=== PATIENT | female | born 1990 | race Caucasian/White ===

== ENCOUNTER 2021-06-19 18:36 | Inpatient (IN) | payer OTHER ==
[2021-06-19 22:26] VITALS: BMI 25.7
[2021-06-19] MEDS ORDERED: BISMUTH SUBSALICYLATE 524 MG/30 ML PO PRN (23:46)
[2021-06-19] MEDS ORDERED: ONDANSETRON *ODT* 4 MG TABLET SL PRN (23:46)
[2021-06-19] MEDS ORDERED: MAG HYDROX/AL HYDROX/SIMETH 30 ML UNIT-DOSE CUP PO PRN (23:46)
[2021-06-19] MEDS ORDERED: IBUPROFEN 400 MG TABLET (FP) PO PRN (23:46)
[2021-06-19] MEDS ORDERED: MAGNESIUM HYDROX 2400MG/30ML ORAL SUSPENSION 30 ML CUP PO PRN (23:46)
[2021-06-19] MEDS ORDERED: NICOTINE POLACRILEX 2 MG GUM BUC PRN (23:46)
[2021-06-19] MEDS ORDERED: MENTHOL/PHENOL 1 EACH UD MM PRN (23:46)
[2021-06-19] MEDS ORDERED: ACETAMINOPHEN 325 MG TABLET (FP) PO PRN ×2 (23:46)
[2021-06-19] MEDS ORDERED: MAGNESIUM CITRATE 300 ML BOTTLE PO PRN (23:46)
[2021-06-19] MEDS ORDERED: methaDONE HCL 10 MG TABLET (FOR DETOX USE ONLY) PO ONE (23:51)
[2021-06-20] MEDS ORDERED: methaDONE HCL 10 MG TABLET (FOR DETOX USE ONLY) ONE (01:16)
[2021-06-20] MEDS: PRENATAL VITAMINS W/ FOLIC ACID TABLET (FP) PO SCH (10:42)
[2021-06-20 13:27] LABS: HEMATOCRIT 35.5 % (32.4-45.2); HEMOGLOBIN 11.3 GM/dL (10.7-15.3); MCH 25.2 pg (25.7-33.7); MCHC 31.7 g/dl (32.0-36.0); MEAN CELL VOLUME 79.6 fl (80-96); MEAN PLT VOLUME 8.6 fl (7.5-11.1); PLATELET COUNT 418 10^3/uL (134-434); RBC 4.46 M/mm3 (3.60-5.2); RDW 14.8 % (11.6-15.6); WHITE BLOOD COUNT 6.8 K/mm3 (4.0-10.0)
[2021-06-20 14:23] LABS: ALBUMIN 2.5 g/dl (3.4-5.0); BLOOD UREA NITROGEN 14.2 mg/dL (7-18); CALCIUM 8.3 mg/dL (8.5-10.1)
[2021-06-20 14:27] LABS: BILIRUBIN,TOTAL 0.3 mg/dL (0.2-1); CREATININE 0.7 mg/dL (0.55-1.3); TOT PROT 6.3 g/dl (6.4-8.2)
[2021-06-20] MEDS: cloNIDine HCL 0.1 MG TABLET PO PRN (19:36)
[2021-06-20] MEDS: hydrOXYzine PAMOATE 25 MG CAPSULE (FP) PO PRN (19:36)
[2021-06-20] MEDS: THIAMINE HCL 100 MG TABLET (FP) PO SCH (22:55)
[2021-06-20] MEDS: MELATONIN 5 MG TABLETS PO SCH (23:10)
[2021-06-21] MEDS: cloNIDine HCL 0.1 MG TABLET PO PRN ×2 (04:43→21:21)
[2021-06-21] MEDS: METHOCARBAMOL 500 MG TABLET PO PRN ×2 (04:43→22:49)
[2021-06-21] MEDS ORDERED: methaDONE HCL 10 MG TABLET (FOR DETOX USE ONLY) ONE (08:46)
[2021-06-21] MEDS: PRENATAL VITAMINS W/ FOLIC ACID TABLET (FP) PO SCH (09:05)
[2021-06-21] MEDS ORDERED: methaDONE HCL 10 MG TABLET (FOR DETOX USE ONLY) PO ONE (10:00)
[2021-06-21] MEDS: THIAMINE HCL 100 MG TABLET (FP) PO SCH ×2 (22:30→22:54)
[2021-06-21] MEDS: MELATONIN 5 MG TABLETS PO SCH ×2 (22:30→22:53)
[2021-06-21] MEDS: hydrOXYzine PAMOATE 25 MG CAPSULE (FP) PO PRN (22:49)
[2021-06-22] MEDS ORDERED: methaDONE HCL 10 MG TABLET (FOR DETOX USE ONLY) PO ONE (10:00)
[2021-06-22] MEDS: METHOCARBAMOL 500 MG TABLET PO PRN ×3 (10:09→23:23)
[2021-06-22] MEDS: PRENATAL VITAMINS W/ FOLIC ACID TABLET (FP) PO SCH (10:09)
[2021-06-22] MEDS: cloNIDine HCL 0.1 MG TABLET PO PRN ×2 (16:41→23:23)
[2021-06-22] MEDS: hydrOXYzine PAMOATE 25 MG CAPSULE (FP) PO PRN ×2 (16:41→23:23)
[2021-06-22] MEDS: MELATONIN 5 MG TABLETS PO SCH (23:23)
[2021-06-22] MEDS: THIAMINE HCL 100 MG TABLET (FP) PO SCH (23:24)
[2021-06-23] MEDS ORDERED: methaDONE HCL 10 MG TABLET (FOR DETOX USE ONLY) ONE (09:15)
[2021-06-23] MEDS: PRENATAL VITAMINS W/ FOLIC ACID TABLET (FP) PO SCH (10:13)
[2021-06-23 18:08] VITALS: BP 117/65; PULSE 63; TEMP 98.2
[2021-06-23] MEDS: cloNIDine HCL 0.1 MG TABLET PO PRN (18:18)
[2021-06-24] MEDS ORDERED: methaDONE HCL 10 MG TABLET (FOR DETOX USE ONLY) PO ONE (10:00)
== END 2021-06-23 19:41 | disposition left against medical advice (07) | DRG 561 ==
LOC: YASAS 18:36 → Y6N 06-20 09:18
PROVIDERS: ADMIT Allergy & Immunology; ATTEND Allergy & Immunology
PROC: HZ2ZZZZ Detoxification Services for Substance Abuse Treatment (ICD-10-PCS; principal; 2021-06-20)
DX: O99.325 Drug use complicating the puerperium (principal); F11.20 Opioid dependence, uncomplicated; F14.20 Cocaine dependence, uncomplicated; F15.10 Other stimulant abuse, uncomplicated; O99.345 Other mental disorders complicating the puerperium; F19.24 Other psychoactive substance dependence with psychoactive substance-induced mood disorder
CPT/HCPCS: 36415; 80053; 81025; 84702; 85027; 86780; 93005; 93010; C9803; J0735; U0003; U0005